=== PATIENT | male | born 1940 | race African-American/Black ===

== ENCOUNTER 2018-05-30 10:05 | Emergency (ER) | payer MEDICARE ==
[2018-05-30 10:56] LABS: ADD MAN DIFF? NO
[2018-05-30 10:58] LABS: BASO % 0 % (0-3); EOS # 0.1 x10^3/uL (0.0-0.7); EOS % 2 % (0-3); HEMATOCRIT 43.1 % (39.0-53.0); HEMOGLOBIN 14.6 g/dL (13.0-17.5); LYMPH % 28 % (24-48); MEAN CORPUSCULAR HEMOGLOBIN 29 pg (25-35); MEAN CORPUSCULAR HGB CONC 34 g/dL (31-37); MEAN CORPUSCULAR VOLUME 85 fL (79-100); MONO # 0.6 x10^3/uL (0.0-1.1); MONO % 8 % (0-9); NEUT # 4.3 x10^3uL (1.8-7.7); NEUT % 62 % (31-73); PLATELET COUNT 248 x10^3/uL (140-400); RED BLOOD COUNT 5.11 x10^6/uL (4.30-5.70); RED CELL DISTRIBUTION WIDTH 14.2 % (11.5-14.5)
[2018-05-30 11:09] LABS: ANION GAP 1 (6-14); BLOOD UREA NITROGEN 23 mg/dL (8-26); BUN/CREATININE RATIO 18 (6-20); CALCIUM 8.8 mg/dL (8.5-10.1); CARBON DIOXIDE 33 mmol/L (21-32); CHLORIDE 102 mmol/L (98-107); CREATININE 1.3 mg/dL (0.7-1.3); GFR 64.8; GLUCOSE 145 mg/dL (70-99); POTASSIUM 4.2 mmol/L (3.5-5.1); SODIUM 136 mmol/L (136-145)
[2018-05-30 11:16] LABS: ALBUMIN 3.5 g/dL (3.4-5.0); ALK PHOS 60 U/L (46-116); ALT (SGPT) 22 U/L (16-63); AST (SGOT) 18 U/L (15-37); TOTAL BILIRUBIN 0.4 mg/dL (0.2-1.0); TOTAL PROTEIN 7.1 g/dL (6.4-8.2)
[2018-05-30 15:47] LABS: BILIRUBIN,URINE NEGATIVE (NEG); CLARITY,URINE CLEAR; COLOR,URINE YELLOW; GLUCOSE,URINE NEGATIVE (NEG); NITRITE,URINE NEGATIVE (NEG); PROTEIN,URINE NEGATIVE (NEG-TRACE)
[2018-05-30 15:53] LABS: BACTERIA,URINE 0 /HPF (0-FEW); RBC,URINE 0 /HPF (0-2); SQUAMOUS EPITHELIAL CELL,UR FEW /LPF; WBC,URINE OCC /HPF (0-4)
[2018-05-30 15:54] LABS: HYALINE CASTS, URINE FEW /HPF
== END 2018-05-30 16:45 | disposition home or self-care (01) ==
LOC: ER 16:45
DX: M54.5 Low back pain (principal); M62.3 Immobility syndrome (paraplegic); E78.00 Pure hypercholesterolemia, unspecified; E11.9 Type 2 diabetes mellitus without complications; I10 Essential (primary) hypertension; I25.10 Atherosclerotic heart disease of native coronary artery without angina pectoris
CPT/HCPCS: 36415; 72146; 72148; 80053; 81001; 85025; 99285-25

== ENCOUNTER 2018-06-13 13:35 | Emergency (ER) | payer MEDICARE ==
[2018-06-13 14:46] LABS: CLARITY,URINE TURBID; COLOR,URINE RED; GLUCOSE,URINE NEGATIVE (NEG); PROTEIN,URINE 100 mg/dL (NEG-TRACE)
[2018-06-13 15:07] LABS: RBC,URINE TNTC /HPF (0-2)
[2018-06-13 15:08] LABS: BACTERIA,URINE 0 /HPF (0-FEW); WBC,URINE OCC /HPF (0-4)
== END 2018-06-13 15:57 | disposition home or self-care (01) ==
LOC: ER 13:35
DX: R31.0 Gross hematuria (principal); R30.0 Dysuria; E78.00 Pure hypercholesterolemia, unspecified; I10 Essential (primary) hypertension; I25.10 Atherosclerotic heart disease of native coronary artery without angina pectoris
CPT/HCPCS: 81001; 99285-25; P9612

== ENCOUNTER → 2018-06-17 | Outpatient (CLI) | payer MEDICARE | END | disposition home or self-care (01) | LOC: MRI 09:20 | DX: R90.82 White matter disease, unspecified (principal); M17.0 Bilateral primary osteoarthritis of knee; E78.5 Hyperlipidemia, unspecified; E78.00 Pure hypercholesterolemia, unspecified; J44.9 Chronic obstructive pulmonary disease, unspecified; I13.0 Hypertensive heart and chronic kidney disease with heart failure and stage 1 through stage 4 chronic kidney disease, or unspecified chronic kidney disease; E11.22 Type 2 diabetes mellitus with diabetic chronic kidney disease; I50.9 Heart failure, unspecified; N18.3 Chronic kidney disease, stage 3 (moderate); K21.9 Gastro-esophageal reflux disease without esophagitis; E66.9 Obesity, unspecified | CPT/HCPCS: 70551 ==

== ENCOUNTER 2019-02-11 15:50 | Inpatient (IN) | payer MEDICARE ==
[~2019-02-11] VITALS: Ht 182.9 cm; Wt 111.4 kg
[~2019-02-11 15:50] MED LIST: ALLO100T PO; AMOX1TAB11 PO; ASPI325T8 PO; ATOR10TA60 PO; CHOL10002 PO; CIPR250T30 PO; CLOP75TA57 PO; FURO-68 PO; GABA300C18 PO; GLIM1TAB2 PO; GLIM2TAB PO; GLIM2TAB2 PO; IPRA3AMP29 NEB; LACT1CAP24 PO; MECL25TA3 PO; MELO15TA23 PO; METF10007 PO; METO-239 PO; MULT-18 PO; OMEG-57 PO; POTA20TA12 PO; TAMS0.4C2 PO
--- NOTE | 2019-02-11 17:00 | NUR ---
Patient direct admit from Dr. Mendez's office at 1700, arrived with . Has complaints of new onset back pain rating pain 10/10. This RN called Dr. Mendez who in return placed all orders, home medications restarted. IV started. Pain medication given. Patient resting comfortable in bed.
[2019-02-11] MEDS ORDERED: oxyCODONE/APAP 5/325 1 TAB TABLET PO PRN ×2 (17:30)
[2019-02-11] MEDS ORDERED: predniSONE 20 MG TABLET PO ONE (17:45)
[2019-02-11] MEDS ORDERED: METHOCARBAMOL 500 MG TABLET PO PRN (17:45)
--- NOTE | 2019-02-11 17:55 | HP ---
ADMIT DATE: 02/11/2019 CHIEF COMPLAINT: Low back pain, leg weakness. HISTORY OF PRESENT ILLNESS AND HOSPITAL COURSE: This patient states that he has become increasingly weak and has intractable back pain every time he tries to stand. He is here with and is brought in by wheelchair. He is no longer able to take care of himself and his can no longer manage lifting him at home. Due to these findings, he was admitted directly to the hospital for intractable back pain. PT and OT modalities with possible rehab or fci care. PAST MEDICAL HISTORY: Significant for, 1. Type 2 diabetes. 2. Hypertension. 3. Coronary artery disease. 4. Hyperlipidemia. 5. COPD. 6. Obstructive sleep apnea. 7. Diabetic neuropathy. 8. Degenerative disk disease. 9. Spinal stenosis. 10. Multinodular goiter. 11. Gouty arthritis. 12. Obesity. MEDICATIONS: On admission are metoprolol 25 mg half a tablet daily, metformin 1000 mg daily, Plavix 75 mg daily, aspirin 325 mg daily, allopurinol 100 mg daily, meclizine 25 mg t.i.d. p.r.n., multivitamin daily, Lasix 40 mg daily, Lipitor 20 mg daily, potassium 20 mEq daily, vitamin D 1000 international units daily. FAMILY HISTORY: Significant for father with prostate cancer and mother who with heart disease. PAST SURGICAL HISTORY: Significant for lap band surgery and stent to LAD. SOCIAL HISTORY: He is a former smoker, quit greater than 10 years ago. He does not use alcohol. He lives with his . REVIEW OF SYSTEMS: The patient denies any bowel or bladder dysfunction. He denies any cough, congestion, fever, weight gain or weight loss. The patient has intractable low back pain, worse with activity and leg weakness. PHYSICAL EXAMINATION: GENERAL: This is a well-nourished, well-developed, moderately obese -[place] male in no apparent distress. On my exam, he is alert and oriented x 3. HEENT: Benign. NECK: Supple. CARDIAC: Regular rate and rhythm. LUNGS: Clear. ABDOMEN: Soft, nontender. EXTREMITIES: 2+ pulses without significant edema. NEUROLOGIC: Showed poor ability to stand from chair. The patient is unable to stand for more than 10 seconds when he has to sit back down due to intractable pain. ASSESSMENT: 1. Intractable back pain. 2. Leg weakness. 3. Spinal stenosis. 4. See past medical history. PLAN: To proceed with MRI of the back. Consult Dr. Young for physical rehabilitation medicine, proceed with PT and OT modalities and consider neurosurgical consultation pending MRI results monitoring, treat chronic medical issues. JANET MIRANDA MD DR: FREDDY/stephen JOB#: [id number] / [id number]
[2019-02-11] MEDS: ENOXAPARIN 40 MG/0.4 ML SYRINGE. SQ SCH (18:00)
[2019-02-11 19:00] VITALS: BP 141/82
[2019-02-11 19:06] LABS: BASO # 0.1 x10^3/uL (0.0-0.2); BASO % 1 % (0-3); EOS # 0.2 x10^3/uL (0.0-0.7); EOS % 2 % (0-3); HEMATOCRIT 39.1 % (39.0-53.0); HEMOGLOBIN 13.2 g/dL (13.0-17.5); LYMPH % 30 % (24-48); MEAN CORPUSCULAR HEMOGLOBIN 28 pg (25-35); MEAN CORPUSCULAR HGB CONC 34 g/dL (31-37); MEAN CORPUSCULAR VOLUME 84 fL (79-100); MONO # 0.6 x10^3/uL (0.0-1.1); MONO % 10 % (0-9); NEUT # 3.7 x10^3uL (1.8-7.7); NEUT % 57 % (31-73); PLATELET COUNT 218 x10^3/uL (140-400); RED BLOOD COUNT 4.65 x10^6/uL (4.30-5.70); RED CELL DISTRIBUTION WIDTH 14.1 % (11.5-14.5); WHITE BLOOD COUNT 6.5 x10^3/uL (4.0-11.0)
[2019-02-11 19:17] LABS: ALBUMIN/GLOBULIN RATIO 0.8 (1.0-1.7); CALCIUM 9.2 mg/dL (8.5-10.1); CREATININE 1.1 mg/dL (0.7-1.3); GFR 78.3; POTASSIUM 3.3 mmol/L (3.5-5.1); TOTAL BILIRUBIN 0.4 mg/dL (0.2-1.0); TOTAL PROTEIN 6.7 g/dL (6.4-8.2)
[2019-02-11] MEDS: ATORVASTATIN CALCIUM 10 MG TABLET. PO SCH (20:30)
[2019-02-11] MEDS: INSULIN LISPRO 300 UNITS/3 ML INSULN.PEN. SQ SCH (20:31)
[2019-02-11 22:47] VITALS: BP 138/84
[2019-02-12 03:00] VITALS: BP 167/71
[2019-02-12 04:24] LABS: BASO % 0 % (0-3); EOS % 0 % (0-3); HEMATOCRIT 40.1 % (39.0-53.0); HEMOGLOBIN 13.4 g/dL (13.0-17.5); LYMPH # 1.2 x10^3/uL (1.0-4.8); LYMPH % 21 % (24-48); MEAN CORPUSCULAR HEMOGLOBIN 28 pg (25-35); MEAN CORPUSCULAR HGB CONC 34 g/dL (31-37); MEAN CORPUSCULAR VOLUME 84 fL (79-100); MONO # 0.1 x10^3/uL (0.0-1.1); MONO % 1 % (0-9); NEUT # 4.4 x10^3uL (1.8-7.7); NEUT % 78 % (31-73); PLATELET COUNT 238 x10^3/uL (140-400); RED BLOOD COUNT 4.79 x10^6/uL (4.30-5.70); RED CELL DISTRIBUTION WIDTH 13.8 % (11.5-14.5); WHITE BLOOD COUNT 5.7 x10^3/uL (4.0-11.0)
[2019-02-12 04:49] LABS: CALCIUM 9.1 mg/dL (8.5-10.1); CREATININE 1.1 mg/dL (0.7-1.3); GFR 78.3; POTASSIUM 3.4 mmol/L (3.5-5.1)
[2019-02-12 07:00] VITALS: BP 158/80
[2019-02-12] MEDS: MULTIVITAMIN with MINERAL TABLET. PO SCH (08:53)
[2019-02-12] MEDS: ALLOPURINOL 100 MG TABLET. PO SCH (08:53)
[2019-02-12] MEDS: metFORMIN 500 MG TABLET PO SCH (08:53)
[2019-02-12] MEDS: POTASSIUM CHLORIDE 20 MEQ TABLET.ER. PO SCH (08:53)
[2019-02-12] MEDS: FUROSEMIDE 40 MG TABLET. PO SCH (08:53)
[2019-02-12] MEDS: METOPROLOL SUCC 24HR ER 25 MG TAB.ER.24H. PO SCH (08:54)
[2019-02-12] MEDS: INSULIN LISPRO 300 UNITS/3 ML INSULN.PEN. SQ SCH ×4 (08:58→21:00)
[2019-02-12] MEDS ORDERED: CLOPIDOGREL BISULFATE 75 MG TABLET PO SCH (09:00)
[2019-02-12] MEDS ORDERED: BUPIVACAINE MPF 0.25% 10 ML VIAL. IJ ONE (10:00)
[2019-02-12] MEDS ORDERED: methylPREDNISolone ACETATE 40 MG/ML VIAL. INJ ONE (10:00)
[2019-02-12 11:00] VITALS: BP 152/77
--- NOTE | 2019-02-12 11:52 | PDOC ---
PROGRESS NOTES Subjective Subjective Patient feeling better but still with significant mobility deficit and low back pain. Plan on PT OT eval and SNU eval and transfer when insurance allows. Objective Objective Vital Signs Date Time Temp Pulse Resp B/P (MAP) Pulse Ox O2 Delivery O2 Flow Rate FiO2 02/12/19 11:00 98.1 82 17 152/77 (102) 97 Room Air 98.1 Intake and Output 02/12/19 07:00 Intake Total 300 ml Output Total 750 ml Balance -450 ml Intake Oral 300 ml Output Urine Total 750 ml Physical Exam Abdomen: Normal bowel sounds Heart: Regular rate Extremities: No edema General: Alert Lungs: Clear to auscultation MUSCULOSKELETAL: Other (low back pain and leg weakness) Assessment Assessment ASSESSMENT: 1. Intractable back pain. 2. Leg weakness. 3. Spinal stenosis. PAST MEDICAL HISTORY: Significant for, 1. Type 2 diabetes. 2. Hypertension. 3. Coronary artery disease. 4. Hyperlipidemia. 5. COPD. 6. Obstructive sleep apnea. 7. Diabetic neuropathy. 8. Degenerative disk disease. 9. Spinal stenosis. 10. Multinodular goiter. 11. Gouty arthritis. 12. Obesity. Plan Plan of Care Proceed with PT OT eval and treat. SNU transfer when insurance allows. Consult pain clinic Comment Review of Relevant I have reviewed the following items paige (where applicable) has been applied. Labs Laboratory Tests Test 02/11/19 17:40 02/11/19 18:30 02/11/19 20:31 02/12/19 03:05 Glucose (Fingerstick) 221 mg/dL (70-99) 142 mg/dL (70-99) White Blood Count 6.5 x10^3/uL (4.0-11.0) 5.7 x10^3/uL (4.0-11.0) Red Blood Count 4.65 x10^6/uL (4.30-5.70) 4.79 x10^6/uL (4.30-5.70) Hemoglobin 13.2 g/dL (13.0-17.5) 13.4 g/dL (13.0-17.5) Hematocrit 39.1 % (39.0-53.0) 40.1 % (39.0-53.0) Mean Corpuscular Volume 84 fL (79-100) 84 fL (79-100) Mean Corpuscular Hemoglobin 28 pg (25-35) 28 pg (25-35) Mean Corpuscular Hemoglobin Concent 34 g/dL (31-37) 34 g/dL (31-37) Red Cell Distribution Width 14.1 % (11.5-14.5) 13.8 % (11.5-14.5) Platelet Count 218 x10^3/uL (140-400) 238 x10^3/uL (140-400) Neutrophils (%) (Auto) 57 % (31-73) 78 % (31-73) Lymphocytes (%) (Auto) 30 % (24-48) 21 % (24-48) Monocytes (%) (Auto) 10 % (0-9) 1 % (0-9) Eosinophils (%) (Auto) 2 % (0-3) 0 % (0-3) Basophils (%) (Auto) 1 % (0-3) 0 % (0-3) Neutrophils # (Auto) 3.7 x10^3uL (1.8-7.7) 4.4 x10^3uL (1.8-7.7) Lymphocytes # (Auto) 2.0 x10^3/uL (1.0-4.8) 1.2 x10^3/uL (1.0-4.8) Monocytes # (Auto) 0.6 x10^3/uL (0.0-1.1) 0.1 x10^3/uL (0.0-1.1) Eosinophils # (Auto) 0.2 x10^3/uL (0.0-0.7) 0.0 x10^3/uL (0.0-0.7) Basophils # (Auto) 0.1 x10^3/uL (0.0-0.2) 0.0 x10^3/uL (0.0-0.2) Sodium Level 144 mmol/L (136-145) 143 mmol/L (136-145) Potassium Level 3.3 mmol/L (3.5-5.1) 3.4 mmol/L (3.5-5.1) Chloride Level 104 mmol/L (98-107) 102 mmol/L (98-107) Carbon Dioxide Level 33 mmol/L (21-32) 31 mmol/L (21-32) Anion Gap 7 (6-14) 10 (6-14) Blood Urea Nitrogen 14 mg/dL (8-26) 12 mg/dL (8-26) Creatinine 1.1 mg/dL (0.7-1.3) 1.1 mg/dL (0.7-1.3) Estimated GFR (Cockcroft-Gault) 78.3 78.3 BUN/Creatinine Ratio 13 (6-20) Glucose Level 209 mg/dL (70-99) 188 mg/dL (70-99) Calcium Level 9.2 mg/dL (8.5-10.1) 9.1 mg/dL (8.5-10.1) Total Bilirubin 0.4 mg/dL (0.2-1.0) Aspartate Amino Transf (AST/SGOT) 16 U/L (15-37) Alanine Aminotransferase (ALT/SGPT) 14 U/L (16-63) Alkaline Phosphatase 55 U/L (46-116) Total Protein 6.7 g/dL (6.4-8.2) Albumin 3.0 g/dL (3.4-5.0) Albumin/Globulin Ratio 0.8 (1.0-1.7) Test 02/12/19 07:50 02/12/19 10:28 Glucose (Fingerstick) 152 mg/dL (70-99) 186 mg/dL (70-99) Laboratory Tests Test 02/11/19 17:40 02/11/19 18:30 02/11/19 20:31 02/12/19 03:05 Glucose (Fingerstick) 221 mg/dL (70-99) 142 mg/dL (70-99) White Blood Count 6.5 x10^3/uL (4.0-11.0) 5.7 x10^3/uL (4.0-11.0) Red Blood Count 4.65 x10^6/uL (4.30-5.70) 4.79 x10^6/uL (4.30-5.70) Hemoglobin 13.2 g/dL (13.0-17.5) 13.4 g/dL (13.0-17.5) Hematocrit 39.1 % (39.0-53.0) 40.1 % (39.0-53.0) Mean Corpuscular Volume 84 fL (79-100) 84 fL (79-100) Mean Corpuscular Hemoglobin 28 pg (25-35) 28 pg (25-35) Mean Corpuscular Hemoglobin Concent 34 g/dL (31-37) 34 g/dL (31-37) Red Cell Distribution Width 14.1 % (11.5-14.5) 13.8 % (11.5-14.5) Platelet Count 218 x10^3/uL (140-400) 238 x10^3/uL (140-400) Neutrophils (%) (Auto) 57 % (31-73) 78 % (31-73) Lymphocytes (%) (Auto) 30 % (24-48) 21 % (24-48) Monocytes (%) (Auto) 10 % (0-9) 1 % (0-9) Eosinophils (%) (Auto) 2 % (0-3) 0 % (0-3) Basophils (%) (Auto) 1 % (0-3) 0 % (0-3) Neutrophils # (Auto) 3.7 x10^3uL (1.8-7.7) 4.4 x10^3uL (1.8-7.7) Lymphocytes # (Auto) 2.0 x10^3/uL (1.0-4.8) 1.2 x10^3/uL (1.0-4.8) Monocytes # (Auto) 0.6 x10^3/uL (0.0-1.1) 0.1 x10^3/uL (0.0-1.1) Eosinophils # (Auto) 0.2 x10^3/uL (0.0-0.7) 0.0 x10^3/uL (0.0-0.7) Basophils # (Auto) 0.1 x10^3/uL (0.0-0.2) 0.0 x10^3/uL (0.0-0.2) Sodium Level 144 mmol/L (136-145) 143 mmol/L (136-145) Potassium Level 3.3 mmol/L (3.5-5.1) 3.4 mmol/L (3.5-5.1) Chloride Level 104 mmol/L (98-107) 102 mmol/L (98-107) Carbon Dioxide Level 33 mmol/L (21-32) 31 mmol/L (21-32) Anion Gap 7 (6-14) 10 (6-14) Blood Urea Nitrogen 14 mg/dL (8-26) 12 mg/dL (8-26) Creatinine 1.1 mg/dL (0.7-1.3) 1.1 mg/dL (0.7-1.3) Estimated GFR (Cockcroft-Gault) 78.3 78.3 BUN/Creatinine Ratio 13 (6-20) Glucose Level 209 mg/dL (70-99) 188 mg/dL (70-99) Calcium Level 9.2 mg/dL (8.5-10.1) 9.1 mg/dL (8.5-10.1) Total Bilirubin 0.4 mg/dL (0.2-1.0) Aspartate Amino Transf (AST/SGOT) 16 U/L (15-37) Alanine Aminotransferase (ALT/SGPT) 14 U/L (16-63) Alkaline Phosphatase 55 U/L (46-116) Total Protein 6.7 g/dL (6.4-8.2) Albumin 3.0 g/dL (3.4-5.0) Albumin/Globulin Ratio 0.8 (1.0-1.7) Test 02/12/19 07:50 02/12/19 10:28 Glucose (Fingerstick) 152 mg/dL (70-99) 186 mg/dL (70-99) Medications Current Medications Allopurinol (Zyloprim) 100 mg DAILY PO Last administered on 02/12/19at 08:53; Start 02/12/19 at 09:00 Atorvastatin Calcium (Lipitor) 20 mg HS PO Last administered on 02/11/19at 20:30 ; Start 02/11/19 at 21:00 Clopidogrel Bisulfate (Plavix) 75 mg DAILY PO Last administered on 02/12/19at 08 :52; Start 02/12/19 at 09:00 Furosemide (Lasix) 40 mg DAILY PO Last administered on 02/12/19at 08:53; Start 02/12/19 at 09:00 Metoprolol Succinate (Toprol Xl) 25 mg DAILY PO Last administered on 02/12/19at 08:54; Start 02/12/19 at 09:00 Potassium Chloride (Klor-Con) 20 meq DAILY PO Last administered on 02/12/19 08 :53; Start 02/12/19 at 09:00 Metformin HCl (Glucophage) 1,000 mg [id number] PO Last administered on 08:53; Start 02/12/19 at 08:00 Multivitamins (Thera M Plus) 1 tab DAILY PO Last administered on 02/12/19at 08: 53; Start 02/12/19 at 09:00 Oxycodone/ Acetaminophen (Percocet 5/325) 1 tab PRN Q4HRS PRN PO MILD PAIN, 1ST CHOICE; Start 02/11/19 at 17:30 Oxycodone/ Acetaminophen (Percocet 5/325) 2 tab PRN Q4HRS PRN PO MODERATE PAIN , SEVERE PAIN; Start 02/11/19 at 17:30 Enoxaparin Sodium (Lovenox 40mg Syringe) 40 mg Q24H SQ ; Start 02/11/19 at 18:00 Insulin Human Lispro (HumaLOG) 0-12 UNITS QIDACHS SQ Last administered on at 11:38; Start 02/11/19 at 21:00 Prednisone (Prednisone) 60 mg 1X ONCE PO Last administered on 02/11/19at 18:15 ; Start 02/11/19 at 17:45; Stop 02/11/19 at 17:47; Status DC Methocarbamol (Robaxin) 500 mg PRN TID PRN PO MUSCLE PAIN Last administered on 02/11/19 18:15; Start 02/11/19 at 17:45 Methylprednisolone Acetate (DEPO-Medrol 40MG VIAL) 40 mg 1X ONCE INJ Last administered on 02/12/19 10:00; Start 02/12/19 at 10:00; Stop 02/12/19 at 10:01 ; Status DC Bupivacaine HCl (Sensorcaine-Mpf 0.25%) 10 ml 1X ONCE IJ Last administered on 02/12/19at 10:00; Start 02/12/19 at 10:00; Stop 02/12/19 at 10:01; Status DC Active Scripts Active Reported Atorvastatin Calcium 10 Mg Tablet 20 Mg PO HS Metformin Hcl 1,000 Mg Tablet 1,000 Mg PO DAILY Meloxicam 15 Mg Tablet 15 Mg PO DAILY Allopurinol 100 Mg Tablet 100 Mg PO DAILY Acidophilus Lactobacillus (Lactobacillus Acidophilus) 1 Each Capsule 1 Each PO Fish Oil + D3 Softgel ([place]-3S/Dha/Epa/Fish Oil/D3) 1 Each Capsule 1 Each PO DAILY Daily Vitamin (Multivitamin) 1 Each Tablet 1 Each PO DAILY Vitamin D (Cholecalciferol (Vitamin D3)) 1,000 Unit Tablet 1,000 Unit PO DAILY Metoprolol Succinate ( Xl ) (Metoprolol Succinate) 25 Mg Tab.er.24h 25 Mg PO DAILY Plavix (Clopidogrel Bisulfate) 75 Mg Tablet 75 Mg PO DAILY Lasix (Furosemide) 40 Mg Tablet 40 Mg PO DAILY Potassium Chloride 20 Meq Tab.er.prt 20 Meq PO DAILY Aspirin 325 Mg Tablet 325 Mg PO DAILY Meclizine Hcl 25 Mg Tablet 25 Mg PO DAILY Vitals/I & O Vital Sign - Last 24 Hours 02/11/19 02/11/19 02/11/19 02/11/19 18:45 19:00 20:00 22:47 Temp 98.1 98.6 98.1 98.6 Pulse 65 74 Resp 18 18 B/P (MAP) 141/82 (101) 138/84 (102) Pulse Ox 96 96 O2 Delivery Room Air Room Air Room Air Room Air 02/12/19 02/12/19 02/12/19 02/12/19 03:00 07:00 08:00 08:54 Temp 98.4 97.9 98.4 97.9 Pulse 68 64 64 Resp 18 18 B/P (MAP) 167/71 (103) 158/80 (106) 158/80 Pulse Ox 93 98 O2 Delivery Room Air Room Air Room Air 02/12/19 11:00 Temp 98.1 98.1 Pulse 82 Resp 17 B/P (MAP) 152/77 (102) Pulse Ox 97 O2 Delivery Room Air Intake and Output 02/11/19 02/11/19 02/12/19 15:00 23:00 07:00 Intake Total 300 ml Output Total 750 ml Balance 300 ml -750 ml JANET MIRANDA MD Feb 12, 2019 11:52
[2019-02-12] MEDS ORDERED: GADOBUTROL 10 MMOL/10 ML VIAL IV ONE (13:45)
[2019-02-12] MEDS ORDERED: POTASSIUM CHLORIDE 20 MEQ TABLET.ER. PO ONE (14:45)
[2019-02-12 15:00] VITALS: BP 140/77
--- NOTE | 2019-02-12 15:19 | NUR ---
SW following for discharge planning. Discussed with RN, pt is from home with . Pt had an MRI today, waiting on report. SW awaiting PT/OT recommendations for discharge planning. SW will continue to follow.
--- NOTE | 2019-02-12 15:56 | PDOC ---
SUBJECTIVE Subjective low back pain OBJECTIVE Objective 78 yo male C/O low back pain worse with standing from sitting and with walking Vital Signs Vital Signs Date Time Temp Pulse Resp B/P (MAP) Pulse Ox O2 Delivery O2 Flow Rate FiO2 02/12/19 15:00 98.1 76 15 140/77 (98) 93 Room Air 98.1 02/12/19 11:00 98.1 82 17 152/77 (102) 97 Room Air 98.1 02/12/19 08:54 64 158/80 02/12/19 08:00 Room Air 02/12/19 07:00 97.9 64 18 158/80 (106) 98 Room Air 97.9 02/12/19 03:00 98.4 68 18 167/71 (103) 93 Room Air 98.4 02/11/19 22:47 98.6 74 18 138/84 (102) 96 Room Air 98.6 02/11/19 20:00 Room Air 02/11/19 19:00 98.1 65 18 141/82 (101) 96 Room Air 98.1 02/11/19 18:45 Room Air I & O Intake and Output 02/12/19 06:59 Intake Total 300 ml Output Total 750 ml Balance -450 ml Intake Oral 300 ml Output Urine Total 750 ml ASSESSMENT/PLAN Assessment/Plan MRI: DDD lumbar spine Agree with oxycodone 5mg 1-2 po q 4hrs Pt may benefit from LESI if deemed appropriate and safe to hold clopidigrel COMMENT Lab Laboratory Tests Test 02/11/19 17:40 02/11/19 18:30 02/11/19 20:31 02/12/19 03:05 Glucose (Fingerstick) 221 mg/dL (70-99) 142 mg/dL (70-99) White Blood Count 6.5 x10^3/uL (4.0-11.0) 5.7 x10^3/uL (4.0-11.0) Red Blood Count 4.65 x10^6/uL (4.30-5.70) 4.79 x10^6/uL (4.30-5.70) Hemoglobin 13.2 g/dL (13.0-17.5) 13.4 g/dL (13.0-17.5) Hematocrit 39.1 % (39.0-53.0) 40.1 % (39.0-53.0) Mean Corpuscular Volume 84 fL (79-100) 84 fL (79-100) Mean Corpuscular Hemoglobin 28 pg (25-35) 28 pg (25-35) Mean Corpuscular Hemoglobin Concent 34 g/dL (31-37) 34 g/dL (31-37) Red Cell Distribution Width 14.1 % (11.5-14.5) 13.8 % (11.5-14.5) Platelet Count 218 x10^3/uL (140-400) 238 x10^3/uL (140-400) Neutrophils (%) (Auto) 57 % (31-73) 78 % (31-73) Lymphocytes (%) (Auto) 30 % (24-48) 21 % (24-48) Monocytes (%) (Auto) 10 % (0-9) 1 % (0-9) Eosinophils (%) (Auto) 2 % (0-3) 0 % (0-3) Basophils (%) (Auto) 1 % (0-3) 0 % (0-3) Neutrophils # (Auto) 3.7 x10^3uL (1.8-7.7) 4.4 x10^3uL (1.8-7.7) Lymphocytes # (Auto) 2.0 x10^3/uL (1.0-4.8) 1.2 x10^3/uL (1.0-4.8) Monocytes # (Auto) 0.6 x10^3/uL (0.0-1.1) 0.1 x10^3/uL (0.0-1.1) Eosinophils # (Auto) 0.2 x10^3/uL (0.0-0.7) 0.0 x10^3/uL (0.0-0.7) Basophils # (Auto) 0.1 x10^3/uL (0.0-0.2) 0.0 x10^3/uL (0.0-0.2) Sodium Level 144 mmol/L (136-145) 143 mmol/L (136-145) Potassium Level 3.3 mmol/L (3.5-5.1) 3.4 mmol/L (3.5-5.1) Chloride Level 104 mmol/L (98-107) 102 mmol/L (98-107) Carbon Dioxide Level 33 mmol/L (21-32) 31 mmol/L (21-32) Anion Gap 7 (6-14) 10 (6-14) Blood Urea Nitrogen 14 mg/dL (8-26) 12 mg/dL (8-26) Creatinine 1.1 mg/dL (0.7-1.3) 1.1 mg/dL (0.7-1.3) Estimated GFR (Cockcroft-Gault) 78.3 78.3 BUN/Creatinine Ratio 13 (6-20) Glucose Level 209 mg/dL (70-99) 188 mg/dL (70-99) Calcium Level 9.2 mg/dL (8.5-10.1) 9.1 mg/dL (8.5-10.1) Total Bilirubin 0.4 mg/dL (0.2-1.0) Aspartate Amino Transf (AST/SGOT) 16 U/L (15-37) Alanine Aminotransferase (ALT/SGPT) 14 U/L (16-63) Alkaline Phosphatase 55 U/L (46-116) Total Protein 6.7 g/dL (6.4-8.2) Albumin 3.0 g/dL (3.4-5.0) Albumin/Globulin Ratio 0.8 (1.0-1.7) Test 02/12/19 07:50 02/12/19 10:28 Glucose (Fingerstick) 152 mg/dL (70-99) 186 mg/dL (70-99) SHARON BRODY MD Feb 12, 2019 15:56
--- NOTE | 2019-02-12 16:37 | RAD ---
MRI of the lumbar spine without and with contrast 02/12/2019 CLINICAL HISTORY: Low back pain with bilateral leg weakness. TECHNIQUE: Unenhanced T1-weighted and T2-weighted sagittal and axial and inversion recovery sagittal images of the lumbar spine were obtained. After the intravenous administration of 10 cc of Gadavist, enhanced T1-weighted sagittal and axial images the lumbar spine were obtained. FINDINGS: Comparison study is dated 05/30/2018. Very mild S-shaped curvature of the thoracolumbar spine is seen. Degenerative signal changes are seen involving all of the disks of the lumbar spine. Degenerative signal changes are seen within the marrow surrounding these discs. The conus medullaris is normal morphology, position, and signal characteristics. No area of abnormal contrast enhancement is seen. At the L1-2 and L2-3 disc spaces there are minimal generalized disc bulges. Degenerative changes are seen involving the facet joints bilaterally. These findings do not result in significant central spinal canal or neural foraminal stenosis. At the L3-4 disc space there is a mild generalized disc bulge. Superimposed on this disc bulge is a left paracentral focal disc protrusion. This measures 3 mm in AP diameter. Degenerative changes are seen involving the facet joints bilaterally. There is mild ligamentum flavum hypertrophy bilaterally. These findings when combined result in mild left-sided central spinal canal stenosis. Mild bilateral neural foraminal stenosis is seen. At the L4-5 disc space there is a mild to moderate generalized disc bulge. Degenerative changes are seen involving the facet joints bilaterally. There is mild ligamentum flavum hypertrophy bilaterally. There are small facet joint effusions. These findings when combined do not result in significant central spinal canal stenosis. Mild bilateral neural foraminal stenosis is seen. At the L5-S1 disc space there is a mild generalized disc bulge. Degenerative changes are seen involving the facet joints bilaterally. There is mild ligamentum flavum hypertrophy bilaterally. These findings when combined do not result in significant central spinal canal or neural foraminal stenosis. IMPRESSION: The changes of degenerative disc disease are seen throughout the lumbar spine. These findings result in mild left-sided central spinal canal stenosis at L3-4. Mild bilateral neural foraminal stenosis is seen at L3-4 and L4-5. Electronically signed by: Yayo Tavera MD (02/12/2019 4:34 PM) [id number]
[2019-02-12] MEDS: ENOXAPARIN 40 MG/0.4 ML SYRINGE. SQ SCH (17:16)
[2019-02-12 19:00] VITALS: BP 165/86
[2019-02-12] MEDS ORDERED: predniSONE 20 MG TABLET PO ONE (20:15)
--- NOTE | 2019-02-12 20:21 | CONS ---
DATE OF CONSULTATION: ATTENDING PHYSICIAN: Dr. Mendez The patient was seen at the request of Dr. Mendez for rehab evaluation. HISTORY OF PRESENT ILLNESS: This is a 78-year-old right-handed male, retired patient with chronic lower back pain from degenerative disk disease of lumbar vertebrae. The patient was admitted on 02/11/2019 with lower back pain, increasing and intractable every time he tried to stand. His brought him in a wheelchair and she feels he no longer is able to take care of himself and cannot able to manage him in helping lifting him at home. He was admitted for further evaluation and treatment. The patient with known diabetes mellitus, hypertension, coronary artery disease, hyperlipidemia, chronic obstructive pulmonary disease, obstructive sleep apnea, diabetic neuropathy, spinal stenosis, multinodular goiter, gouty arthritis, obesity. He admits when he tried to work out climbing steps the back pain eases up. The patient had MRI scan of the thoracic and lumbar spine done in 05/2018, which revealed multilevel degenerative disk disease and degenerative joint disease of thoracic and lumbar vertebrae without any significant central canal stenosis, mild bilateral neural foraminal stenosis was seen at L4-L5. The patient lives with his , had stairs to manage in a split level home. PHYSICAL EXAMINATION: Today revealed an elderly female. He is alert, oriented to time, place, person and circumstance and follows commands appropriately, moves all 4 extremities voluntarily where he had 4+/5 grade muscle strength and deep tendon reflexes are decreased to absent overall. He had equal perception of touch and pinprick sensation bilaterally. He had painful limited movements of his lumbar spine without any paraspinal muscle spasm and straight leg raising test is negative bilaterally. He had localized tenderness to palpation over the sacroiliac joint area bilaterally. He had pain free range of motion on both hip and knee joints. Mild crepitus on range of motion of knee joints. He is independent with bed mobility and transfers. Once up, he walked using a roller walker. I have adjusted the height of his walker, which is about 2 inches too long for him. He is not using proper body mechanics during mobility. His skin is intact at this time. 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 RECOMMENDATIONS: To proceed with injecting painful sacroiliac joint area on the right side as he complains of more discomfort on the right side to help ease his pain. I have reviewed with him a home program of physical modalities and stretching exercises and proper body mechanics. He may benefit from lumbar corset for use while up. Dr. Mendez, I appreciate asking me to participate in the care of this interesting patient. I will be glad to follow with you as needed for the rehabilitation. PONCHO SWARTZ MD DR: ELIZA/stephen JOB#: [id number] / [id number]
[2019-02-12] MEDS: ATORVASTATIN CALCIUM 10 MG TABLET. PO SCH (21:03)
[2019-02-12 23:00] VITALS: BP 165/86
[2019-02-13 03:00] VITALS: BP 160/85
[2019-02-13 07:00] VITALS: BP 157/74
[2019-02-13] MEDS: INSULIN LISPRO 300 UNITS/3 ML INSULN.PEN. SQ SCH ×2 (07:30→13:17)
[2019-02-13] MEDS: metFORMIN 500 MG TABLET PO SCH (08:35)
[2019-02-13] MEDS: FUROSEMIDE 40 MG TABLET. PO SCH (08:35)
[2019-02-13] MEDS: MULTIVITAMIN with MINERAL TABLET. PO SCH (08:35)
[2019-02-13] MEDS: POTASSIUM CHLORIDE 20 MEQ TABLET.ER. PO SCH (08:35)
[2019-02-13] MEDS: ALLOPURINOL 100 MG TABLET. PO SCH (08:36)
[2019-02-13] MEDS: METOPROLOL SUCC 24HR ER 25 MG TAB.ER.24H. PO SCH (08:36)
--- NOTE | 2019-02-13 09:06 | PDOC ---
PROGRESS NOTES Subjective Subjective He admits easing of back pain from right sacroiliac joint injection yesterday. Objective Objective Vital Signs Date Time Temp Pulse Resp B/P (MAP) Pulse Ox O2 Delivery O2 Flow Rate FiO2 02/13/19 08:36 63 157/74 02/13/19 07:00 98.1 18 98 Room Air 98.1 Intake and Output 02/13/19 07:00 Intake Total 300 ml Output Total 675 ml Balance -375 ml Intake Oral 300 ml Output Urine Total 675 ml Physical Exam Physical Exam He is awake and in no acute distress and he is incontinent of urine this AM and spilled urine on him while using urinal yesterday. He did walk for 100' with roller walker with physical therapy but he apparently had bradykinesis with his gait,almost like parkinsonism gait,in that while walking he suddenly stops and then takes small steps too fast. 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 Plan Plan of Care Agree with plans for SNF transfer. To check postvoiding urine residual and try time voiding to help with his incontinence. Comment Review of Relevant I have reviewed the following items paige (where applicable) has been applied. Labs Laboratory Tests Test 02/11/19 17:40 02/11/19 18:30 02/11/19 20:31 02/12/19 03:05 Glucose (Fingerstick) 221 mg/dL (70-99) 142 mg/dL (70-99) White Blood Count 6.5 x10^3/uL (4.0-11.0) 5.7 x10^3/uL (4.0-11.0) Red Blood Count 4.65 x10^6/uL (4.30-5.70) 4.79 x10^6/uL (4.30-5.70) Hemoglobin 13.2 g/dL (13.0-17.5) 13.4 g/dL (13.0-17.5) Hematocrit 39.1 % (39.0-53.0) 40.1 % (39.0-53.0) Mean Corpuscular Volume 84 fL (79-100) 84 fL (79-100) Mean Corpuscular Hemoglobin 28 pg (25-35) 28 pg (25-35) Mean Corpuscular Hemoglobin Concent 34 g/dL (31-37) 34 g/dL (31-37) Red Cell Distribution Width 14.1 % (11.5-14.5) 13.8 % (11.5-14.5) Platelet Count 218 x10^3/uL (140-400) 238 x10^3/uL (140-400) Neutrophils (%) (Auto) 57 % (31-73) 78 % (31-73) Lymphocytes (%) (Auto) 30 % (24-48) 21 % (24-48) Monocytes (%) (Auto) 10 % (0-9) 1 % (0-9) Eosinophils (%) (Auto) 2 % (0-3) 0 % (0-3) Basophils (%) (Auto) 1 % (0-3) 0 % (0-3) Neutrophils # (Auto) 3.7 x10^3uL (1.8-7.7) 4.4 x10^3uL (1.8-7.7) Lymphocytes # (Auto) 2.0 x10^3/uL (1.0-4.8) 1.2 x10^3/uL (1.0-4.8) Monocytes # (Auto) 0.6 x10^3/uL (0.0-1.1) 0.1 x10^3/uL (0.0-1.1) Eosinophils # (Auto) 0.2 x10^3/uL (0.0-0.7) 0.0 x10^3/uL (0.0-0.7) Basophils # (Auto) 0.1 x10^3/uL (0.0-0.2) 0.0 x10^3/uL (0.0-0.2) Sodium Level 144 mmol/L (136-145) 143 mmol/L (136-145) Potassium Level 3.3 mmol/L (3.5-5.1) 3.4 mmol/L (3.5-5.1) Chloride Level 104 mmol/L (98-107) 102 mmol/L (98-107) Carbon Dioxide Level 33 mmol/L (21-32) 31 mmol/L (21-32) Anion Gap 7 (6-14) 10 (6-14) Blood Urea Nitrogen 14 mg/dL (8-26) 12 mg/dL (8-26) Creatinine 1.1 mg/dL (0.7-1.3) 1.1 mg/dL (0.7-1.3) Estimated GFR (Cockcroft-Gault) 78.3 78.3 BUN/Creatinine Ratio 13 (6-20) Glucose Level 209 mg/dL (70-99) 188 mg/dL (70-99) Calcium Level 9.2 mg/dL (8.5-10.1) 9.1 mg/dL (8.5-10.1) Total Bilirubin 0.4 mg/dL (0.2-1.0) Aspartate Amino Transf (AST/SGOT) 16 U/L (15-37) Alanine Aminotransferase (ALT/SGPT) 14 U/L (16-63) Alkaline Phosphatase 55 U/L (46-116) Total Protein 6.7 g/dL (6.4-8.2) Albumin 3.0 g/dL (3.4-5.0) Albumin/Globulin Ratio 0.8 (1.0-1.7) Test 02/12/19 07:50 02/12/19 10:28 02/12/19 17:03 02/12/19 20:39 Glucose (Fingerstick) 152 mg/dL (70-99) 186 mg/dL (70-99) 134 mg/dL (70-99) 147 mg/dL (70-99) Test 02/13/19 07:46 Glucose (Fingerstick) 132 mg/dL (70-99) Laboratory Tests Test 02/12/19 10:28 02/12/19 17:03 02/12/19 20:39 02/13/19 07:46 Glucose (Fingerstick) 186 mg/dL (70-99) 134 mg/dL (70-99) 147 mg/dL (70-99) 132 mg/dL (70-99) Medications Current Medications Allopurinol (Zyloprim) 100 mg DAILY PO Last administered on 02/13/19at 08:36; Start 02/12/19 at 09:00 Atorvastatin Calcium (Lipitor) 20 mg HS PO Last administered on 02/12/19at 21:03 ; Start 02/11/19 at 21:00 Clopidogrel Bisulfate (Plavix) 75 mg DAILY PO Last administered on 02/12/19 08 :52; Start 02/12/19 at 09:00; Stop 02/12/19 at 17:21; Status DC Furosemide (Lasix) 40 mg DAILY PO Last administered on 02/13/19 08:35; Start 02/12/19 at 09:00 Metoprolol Succinate (Toprol Xl) 25 mg DAILY PO Last administered on 02/13/19 08:36; Start 02/12/19 at 09:00 Potassium Chloride (Klor-Con) 20 meq DAILY PO Last administered on 02/13/19 08 :35; Start 02/12/19 at 09:00 Metformin HCl (Glucophage) 1,000 mg DAILYWBKFT PO Last administered on 08:35; Start 02/12/19 at 08:00 Multivitamins (Thera M Plus) 1 tab DAILY PO Last administered on 02/13/19at 08: 35; Start 02/12/19 at 09:00 Oxycodone/ Acetaminophen (Percocet 5/325) 1 tab PRN Q4HRS PRN PO MILD PAIN, 1ST CHOICE; Start 02/11/19 at 17:30 Oxycodone/ Acetaminophen (Percocet 5/325) 2 tab PRN Q4HRS PRN PO MODERATE PAIN , SEVERE PAIN; Start 02/11/19 at 17:30 Enoxaparin Sodium (Lovenox 40mg Syringe) 40 mg Q24H SQ Last administered on at 17:16; Start 02/11/19 at 18:00 Insulin Human Lispro (HumaLOG) 0-12 UNITS QIDACHS SQ Last administered on at 11:38; Start 02/11/19 at 21:00 Prednisone (Prednisone) 60 mg 1X ONCE PO Last administered on 02/11/19 18:15 ; Start 02/11/19 at 17:45; Stop 02/11/19 at 17:47; Status DC Methocarbamol (Robaxin) 500 mg PRN TID PRN PO MUSCLE PAIN Last administered on 02/11/19 18:15; Start 02/11/19 at 17:45 Methylprednisolone Acetate (DEPO-Medrol 40MG VIAL) 40 mg 1X ONCE INJ Last administered on 02/12/19at 10:00; Start 02/12/19 at 10:00; Stop 02/12/19 at 10:01 ; Status DC Bupivacaine HCl (Sensorcaine-Mpf 0.25%) 10 ml 1X ONCE IJ Last administered on 02/12/19at 10:00; Start 02/12/19 at 10:00; Stop 02/12/19 at 10:01; Status DC Gadobutrol (Gadavist) 10 mmol 1X ONCE IV Last administered on 02/12/19at 13:52 ; Start 02/12/19 at 13:45; Stop 02/12/19 at 13:46; Status DC Potassium Chloride (Klor-Con) 20 meq 1X ONCE PO Last administered on at 15:05; Start 02/12/19 at 14:45; Stop 02/12/19 at 14:46; Status DC Prednisone (Prednisone) 60 mg 1X ONCE PO Last administered on 02/12/19at 21:03 ; Start 02/12/19 at 20:15; Stop 02/12/19 at 20:16; Status DC Active Scripts Active Reported Atorvastatin Calcium 10 Mg Tablet 20 Mg PO HS Metformin Hcl 1,000 Mg Tablet 1,000 Mg PO DAILY Meloxicam 15 Mg Tablet 15 Mg PO DAILY Allopurinol 100 Mg Tablet 100 Mg PO DAILY Acidophilus Lactobacillus (Lactobacillus Acidophilus) 1 Each Capsule 1 Each PO Fish Oil + D3 Softgel ([place]-3S/Dha/Epa/Fish Oil/D3) 1 Each Capsule 1 Each PO DAILY Daily Vitamin (Multivitamin) 1 Each Tablet 1 Each PO DAILY Vitamin D (Cholecalciferol (Vitamin D3)) 1,000 Unit Tablet 1,000 Unit PO DAILY Metoprolol Succinate ( Xl ) (Metoprolol Succinate) 25 Mg Tab.er.24h 25 Mg PO DAILY Plavix (Clopidogrel Bisulfate) 75 Mg Tablet 75 Mg PO DAILY Lasix (Furosemide) 40 Mg Tablet 40 Mg PO DAILY Potassium Chloride 20 Meq Tab.er.prt 20 Meq PO DAILY Aspirin 325 Mg Tablet 325 Mg PO DAILY Meclizine Hcl 25 Mg Tablet 25 Mg PO DAILY Vitals/I & O Vital Sign - Last 24 Hours 02/12/19 02/12/19 02/12/19 02/12/19 11:00 15:00 19:00 20:00 Temp 98.1 98.1 98.3 98.1 98.1 98.3 Pulse 82 76 83 Resp 17 15 19 B/P (MAP) 152/77 (102) 140/77 (98) 165/86 (112) Pulse Ox 97 93 95 O2 Delivery Room Air Room Air Room Air Room Air 02/12/19 02/13/19 02/13/19 02/13/19 23:00 03:00 07:00 08:36 Temp 98.3 98.4 98.1 98.3 98.4 98.1 Pulse 83 79 63 63 Resp 18 18 18 B/P (MAP) 165/86 (112) 160/85 (110) 157/74 (101) 157/74 Pulse Ox 95 92 98 O2 Delivery Room Air Room Air Room Air Intake and Output 02/12/19 02/12/19 02/13/19 15:00 23:00 07:00 Intake Total 300 ml Output Total 675 ml Balance 300 ml -675 ml PONCHO SWARTZ MD Feb 13, 2019 09:06
[2019-02-13 10:49] VITALS: BP 136/77
--- NOTE | 2019-02-13 11:48 | NUR ---
SW following. Discussed with RN, PT/ OT recommending SNU. SW met with pt, pt does not really want to go to SNU and does not think he needs it. Pt advised his does everything at home for him. Pt advised SW to call his Jeanne, (ph:[phone], cell: [phone]). SW left a voicemail on both phone numbers. SW will continue to follow. RN notified.
--- NOTE | 2019-02-13 12:11 | NUR ---
SW following. Discussed with RN. RUBA met with pt with Dr. Mendez, pt is agreeable to go to SNU now, and would like referral sent to [facility]. RUBA phoned and faxed referral.
[2019-02-13] MEDS ORDERED: METH500T7 PO (12:28)
[2019-02-13] MEDS ORDERED: PRED-220 PO (12:28)
--- NOTE | 2019-02-13 12:30 | SNU/HH DC ---
DISCHARGE ORDERS DISCHARGE INFORMATION: CONDITION ON DISCHARGE: Stable CODE STATUS: Code Status: Full CORRECTION: SNF STAY <30 DAYS: Yes POST DISCHARGE ORDERS: ACTIVITY ORDERS: Activity as tolerated WEIGHT BEARING STATUS: No restrictions DIET AFTER DISCHARGE: Cardiac CHECKS AFTER DISCHARGE: CHECKS AFTER DISCHARGE: Check blood sugar, ac/hs TREATMENT/EQUIPMENT ORDERS: ADAPTIVE EQUIPMENT NEEDED: Four wheeled walker, Wheelchair RESPIRATORY EQUIPMENT NEEDED: CPAP Physical Therapy For: Evalulation/Treatment Occupational Therapy For: Evaluation/Treatment DISCHARGE MEDICATIONS: Home Meds Active Scripts Prednisone (PREDNISONE ) 10 Mg Tablet, 10 MG PO UD for oa, #30 TAB 0 Refills Take 5 tablets by mouth daily for 2 days, then take 4 tablets by mouth daily for 2 days, then take 3 tablets by mouth daily for 2 days, then take 2 tablets by mouth daily for 2 days, then take 1 tablets by mouth daily for 2 days, then stop. Prov:JANET MIRANDA MD 02/13/19 Methocarbamol (METHOCARBAMOL) 500 Mg Tablet, 500 MG PO PRN TID PRN for MUSCLE PAIN for 30 Days, #60 TAB Prov:JANET MIRANDA MD 02/13/19 Reported Medications Atorvastatin Calcium (ATORVASTATIN CALCIUM) 10 Mg Tablet, 20 MG PO HS for HLD 09/24/17 Metformin Hcl (METFORMIN HCL) 1,000 Mg Tablet, 1000 MG PO DAILY 09/24/17 Meloxicam (MELOXICAM) 15 Mg Tablet, 15 MG PO DAILY 09/24/17 Allopurinol (ALLOPURINOL) 100 Mg Tablet, 100 MG PO DAILY 09/24/17 Lactobacillus Acidophilus (ACIDOPHILUS LACTOBACILLUS) 1 Each Capsule, 1 EACH PO 11/22/15 [place]-3S/Dha/Epa/Fish Oil/D3 (FISH OIL + D3 SOFTGEL) 1 Each Capsule, 1 EACH PO DAILY 04/10/14 Multivitamin (DAILY VITAMIN) 1 Each Tablet, 1 EACH PO DAILY 04/10/14 Cholecalciferol (Vitamin D3) (VITAMIN D) 1,000 Unit Tablet, 1000 UNIT PO DAILY 04/10/14 Metoprolol Succinate (METOPROLOL SUCCINATE ( XL )) 25 Mg Tab.er.24h, 25 MG PO DAILY 04/10/14 Clopidogrel Bisulfate (PLAVIX) 75 Mg Tablet, 75 MG PO DAILY 04/10/14 Furosemide (LASIX) 40 Mg Tablet, 40 MG PO DAILY 04/10/14 Potassium Chloride (POTASSIUM CHLORIDE) 20 Meq Tab.er.prt, 20 MEQ PO DAILY 04/10/14 Aspirin (ASPIRIN) 325 Mg Tablet, 325 MG PO DAILY 04/10/14 Meclizine Hcl (MECLIZINE HCL) 25 Mg Tablet, 25 MG PO DAILY 04/10/14 Discontinued Reported Medications Tamsulosin Hcl (TAMSULOSIN HCL) 0.4 Mg Cap.er.24h, 0.4 MG PO HS 09/24/17 Gabapentin (GABAPENTIN) 300 Mg Capsule, 300 MG PO DAILY 09/24/17 Discontinued Scripts Ciprofloxacin Hcl (CIPRO) 250 Mg Tablet, 1 TAB PO BID for 7 Days, #14 TAB Prov:CHUCK SIFUENTES MD 09/26/17 JANET MIRANDA MD Feb 13, 2019 12:30
--- NOTE | 2019-02-13 13:32 | NUR ---
SW following. Insurance has approved for pt to go to [facility]. Pt will be transported at 1545. RN notified.
[2019-02-13 15:00] VITALS: BP 171/72
--- NOTE | 2019-02-13 16:37 | NUR ---
pt discharged at 1603, pt transported by [facility] accompanied by to [facility] for skilled rehab. pt educated about medications and discharge instructions. pt stable and alert upon discharge. pt IV discontinued without complications. pt left with all belongings and discharge packet.
--- NOTE | 2019-02-13 17:00 | DS ---
DATE OF DISCHARGE: 02/13/2019 ADMITTING DIAGNOSIS: Intractable back pain. SECONDARY DIAGNOSES: 1. Spinal stenosis. 2. Leg weakness. HISTORY OF PRESENT ILLNESS AND HOSPITAL COURSE: This patient is a 78-year-old -[place] male who was unable to care for himself with increasing back pain and leg weakness, came to the office and unable to get out of wheelchair. Due to severity of symptoms, he was admitted for further evaluation. He did have MRI and Physical Medicine physical Rehabilitation Medicine consult, obtained sacroiliac joint injections. An MRI showed spinal stenosis of L-spine. The patient's condition improved, but he was still unable to care for himself. Therefore, plans for care home were made and the patient was transferred to care home for continued PT and OT modalities. DISCHARGE DIAGNOSES: 1. Spinal stenosis. 2. Leg weakness. 3. Sacroiliitis. 4. Type 2 diabetes. 5. Hypertension. 6. Coronary artery disease. 7. Chronic obstructive pulmonary disease. 8. Hyperlipidemia. 9. Obstructive sleep apnea. 10. Diabetic neuropathy. 11. Obesity. PLAN: To proceed with discharge on the following medications methocarbamol 500 mg t.i.d. p.r.n., prednisone taper at 10 mg 5 for 2 days, 4 for 2 days, 3 for 2 days, 2 for 2 days, 1 for 2 days, and off, allopurinol 100 mg daily, aspirin 325 mg daily, atorvastatin 10 mg daily, vitamin D 1000 international units daily, Plavix 75 mg daily, Lasix 40 mg daily, meclizine 25 mg p.o. daily p.r.n., meloxicam 50 mg daily, metformin 1000 mg daily, metoprolol XL 25 mg daily, multivitamin daily, omega 3 fatty acids daily, potassium 20 mEq daily. JANET MIRANDA MD DR: FREDDY/stephen JOB#: [id number] / [id number]
== END 2019-02-13 16:03 | DRG 552 ==
LOC: 5 SOUTH 15:56
PROVIDERS: ADMIT Family Medicine; ATTEND Family Medicine
PROC: 3E0U33Z Introduction of Anti-inflammatory into Joints, Percutaneous Approach (ICD-10-PCS; principal; 2019-02-12)
PROC: 3E0U3BZ Introduction of Anesthetic Agent into Joints, Percutaneous Approach (ICD-10-PCS; 2019-02-12)
DX: M48.061 Spinal stenosis, lumbar region without neurogenic claudication (principal); I10 Essential (primary) hypertension; M51.36 Other intervertebral disc degeneration, lumbar region; I25.10 Atherosclerotic heart disease of native coronary artery without angina pectoris; E78.5 Hyperlipidemia, unspecified; J44.9 Chronic obstructive pulmonary disease, unspecified; G47.33 Obstructive sleep apnea (adult) (pediatric); E04.2 Nontoxic multinodular goiter; M10.9 Gout, unspecified; E66.9 Obesity, unspecified; G89.29 Other chronic pain; E11.42 Type 2 diabetes mellitus with diabetic polyneuropathy; M46.1 Sacroiliitis, not elsewhere classified; Z68.33 Body mass index [BMI] 33.0-33.9, adult; Z80.42 Family history of malignant neoplasm of prostate; Z87.891 Personal history of nicotine dependence; Z82.49 Family history of ischemic heart disease and other diseases of the circulatory system
CPT/HCPCS: 36415; 72158; 80048; 80053; 82962; 85025; A9585; J1030; J1650; J1815; J3490; J7512; 97116; 97535

== ENCOUNTER 2020-05-30 18:10 | Emergency (ER) | payer MEDICARE ==
[~2020-05-30] VITALS: Ht 180.3 cm; Wt 104.5 kg
[~2020-05-30 18:10] MED LIST changes: -GLIM1TAB2 PO; +GLIM1TAB7 PO; -GLIM2TAB2 PO; +GLIM2TAB7 PO; +MECL-75 PO; -MECL25TA3 PO; +METH500T7 PO; +PRED-220 PO
[2020-05-30 19:03] LABS: BASO % 1 % (0-3); EOS # 0.1 x10^3/uL (0.0-0.7); EOS % 2 % (0-3); HEMATOCRIT 39.7 % (39.0-53.0); HEMOGLOBIN 13.7 g/dL (13.0-17.5); LYMPH # 2.4 x10^3/uL (1.0-4.8); LYMPH % 40 % (24-48); MEAN CORPUSCULAR HEMOGLOBIN 29 pg (25-35); MEAN CORPUSCULAR HGB CONC 34 g/dL (31-37); MEAN CORPUSCULAR VOLUME 85 fL (79-100); MONO # 0.4 x10^3/uL (0.0-1.1); MONO % 7 % (0-9); NEUT % 50 % (31-73); PLATELET COUNT 264 x10^3/uL (140-400); RED BLOOD COUNT 4.65 x10^6/uL (4.30-5.70); RED CELL DISTRIBUTION WIDTH 13.9 % (11.5-14.5); WHITE BLOOD COUNT 5.9 x10^3/uL (4.0-11.0)
[2020-05-30 19:11] LABS: PROTHROMBIN TIME PATIENT 12.4 SEC (11.7-14.0)
[2020-05-30 19:16] LABS: CALCIUM 8.9 mg/dL (8.5-10.1); CREATININE 1.7 mg/dL (0.7-1.3); GFR 47.3; POTASSIUM 3.9 mmol/L (3.5-5.1)
[2020-05-30 19:23] LABS: ALBUMIN 3.4 g/dL (3.4-5.0); TOTAL BILIRUBIN 0.4 mg/dL (0.2-1.0); TOTAL PROTEIN 6.8 g/dL (6.4-8.2)
--- NOTE | 2020-05-30 19:57 | RAD ---
CHEST AP ONLY Clinical Indication: Reason: SOB / Spl. Instructions: / History: Comparison: Two-view chest, September 24, 2017.. Findings: The cardiomediastinal silhouette is normal. Coronary artery disease. Moderate elevation right hemidiaphragm. Stable tiny calcified granuloma left upper lung. Lungs are clear. There is no pneumothorax. No pleural effusion is appreciated. No acute bone abnormality. Old left lateral rib fractures. IMPRESSION: No acute cardiopulmonary process. Electronically signed by: Yordy Gayle MD (05/30/2020 7:54 PM) [facility]
[2020-05-30] MEDS ORDERED: IV NORMAL SALINE 1000ML BAG 1,000 ML IV ONE (20:30)
--- NOTE | 2020-05-30 21:03 | PHYS DOC ---
Past Medical History Past Medical History: Arthritis, CAD, Diabetes-Type II, High Cholesterol, Hypertension Additional Past Medical Histor: BACK PAIN, BROKEN RIGHT ARM, BROKEN RIGHT LEG X2, cardiac stents Past Surgical History: Other Additional Past Surgical Histo: LAP BAND, cardiac stents Smoking Status: Former Smoker Alcohol Use: None Drug Use: None General Adult EDM: Chief Complaint: WEAKNESS/GENERALIZED HPI: HPI: Patient is a 79 year old male presenting to the ED with chief complaint of generalized weakness. Patient states that he had an episode that lasted few minutes but he also was short of breath. Patient states that currently he is as ymptomatic. Patient states that he has had a bowel movement when this occurred. Patient denies fever, chills, nausea, vomiting, chest pain, shortness of breath. Review of Systems: Review of Systems: Constitutional: Denies fever or chills. [] Eyes: Denies change in visual acuity. [] HENT: Denies nasal congestion or sore throat. [] Respiratory: Denies cough or shortness of breath. [] Cardiovascular: Denies chest pain or edema. [] GI: Denies abdominal pain, nausea, vomiting, bloody stools or diarrhea. [] : Denies dysuria. [] Neurologic: Denies headache, focal weakness or sensory changes. [] Heart Score: HEART Score for Chest Pain: HEART Score for Chest Pain Response (Comments) Value History Slighlty/Non-Suspicious 0 ECG Normal 0 Age > 65 2 Risk Factors 1 or 2 Risk Factors 1 Troponin < Normal Limit 0 Total 3 Risk Factors: Risk Factors: DM, Current or recent (<one month) smoker, HTN, HLP, family history of CAD, obesity. Risk Scores: Score 0 - 3: 2.5% MACE over next 6 weeks - Discharge Home Score 4 - 6: 20.3% MACE over next 6 weeks - Admit for Clinical Observation Score 7 - 10: 72.7% MACE over next 6 weeks - Early Invasive Strategies Current Medications: Current Medications Medications (Trade) Dose Ordered Sig/Mark Start Time Stop Time Status Last Admin Dose Admin Sodium Chloride 1,000 ml @ 1,000 mls/hr 1X ONCE 05/30/20 20:30 05/30/20 21:29 05/30/20 20:30 1,000 MLS/HR Allergies: Allergies: Allergies Coded Allergies Type Severity Reaction Last Updated Verified No Known Drug Allergies 08/08/15 No Physical Exam: PE: Constitutional: Well developed, well nourished, no acute distress, non-toxic appearance. [] HENT: Normocephalic, atraumatic Eyes: EOMI Neck: Normal range of motion, Supple Cardiovascular:Heart rate regular rhythm Lungs & Thorax: Bilateral breath sounds clear to auscultation [] Abdomen: Bowel sounds normal, soft, no tenderness Extremities: No tenderness, ROM intact Neurologic: Alert and oriented X 3 Current Patient Data: Labs: Laboratory Tests Test 05/30/20 18:28 White Blood Count 5.9 x10^3/uL (4.0-11.0) Red Blood Count 4.65 x10^6/uL (4.30-5.70) Hemoglobin 13.7 g/dL (13.0-17.5) Hematocrit 39.7 % (39.0-53.0) Mean Corpuscular Volume 85 fL (79-100) Mean Corpuscular Hemoglobin 29 pg (25-35) Mean Corpuscular Hemoglobin Concent 34 g/dL (31-37) Red Cell Distribution Width 13.9 % (11.5-14.5) Platelet Count 264 x10^3/uL (140-400) Neutrophils (%) (Auto) 50 % (31-73) Lymphocytes (%) (Auto) 40 % (24-48) Monocytes (%) (Auto) 7 % (0-9) Eosinophils (%) (Auto) 2 % (0-3) Basophils (%) (Auto) 1 % (0-3) Neutrophils # (Auto) 3.0 x10^3/uL (1.8-7.7) Lymphocytes # (Auto) 2.4 x10^3/uL (1.0-4.8) Monocytes # (Auto) 0.4 x10^3/uL (0.0-1.1) Eosinophils # (Auto) 0.1 x10^3/uL (0.0-0.7) Basophils # (Auto) 0.0 x10^3/uL (0.0-0.2) Prothrombin Time 12.4 SEC (11.7-14.0) Prothrombin Time INR 1.0 (0.8-1.1) Sodium Level 141 mmol/L (136-145) Potassium Level 3.9 mmol/L (3.5-5.1) Chloride Level 101 mmol/L (98-107) Carbon Dioxide Level 30 mmol/L (21-32) Anion Gap 10 (6-14) Blood Urea Nitrogen 16 mg/dL (8-26) Creatinine 1.7 mg/dL (0.7-1.3) H Estimated GFR (Cockcroft-Gault) 47.3 BUN/Creatinine Ratio 9 (6-20) Glucose Level 152 mg/dL (70-99) H Calcium Level 8.9 mg/dL (8.5-10.1) Total Bilirubin 0.4 mg/dL (0.2-1.0) Aspartate Amino Transferase (AST) 14 U/L (15-37) L Alanine Aminotransferase (ALT) 17 U/L (16-63) Alkaline Phosphatase 62 U/L (46-116) Troponin I Quantitative < 0.017 ng/mL (0.000-0.055) Total Protein 6.8 g/dL (6.4-8.2) Albumin 3.4 g/dL (3.4-5.0) Albumin/Globulin Ratio 1.0 (1.0-1.7) Lipase 100 U/L (73-393) Laboratory Tests 05/30/20 18:28 Laboratory Tests 05/30/20 18:28 Vital Signs: Vital Signs Date Time Temp Pulse Resp B/P (MAP) Pulse Ox O2 Delivery O2 Flow Rate FiO2 05/30/20 18:15 97.7 75 18 137/63 (87) 97 Room Air 97.7 EKG: EKG: [EKG interpretation: 18: 25 on 05/30/2020 HR: 64 Sinus rhythm Regular intervals Normal axis Nonspecific ST changes No STEMI ] Radiology/Procedures: Radiology/Procedures: [] Impression: CXR IMPRESSION: No acute cardiopulmonary process. Course & Med Decision Making: Course & Med Decision Making Pertinent Labs and Imaging studies reviewed. (See chart for details) EKG does not show any acute changes. Chest x-ray does not show any acute disease. Labs are within normal limits. Troponin is negative Patient was given 1 L IV fluids in the ER. Repeat troponin is negative as well. Patient can be discharged for outpatient follow-up. Discussed results and plan of care with patient. Patient is instructed to follow up with PCP in one to 2 days. Appropriate discharge instructions given to patient to return to the ED or to seek immediate medical evaluation. Patient is instructed to return to the ED if symptoms worsen or if any concerns. Dragon Disclaimer: Dragon Disclaimer: This electronic medical record was generated, in whole or in part, using a voice recognition dictation system. Departure Departure Impression: Primary Impression: Generalized weakness Additional Impression: Dehydration Disposition: 01 HOME, SELF-CARE Condition: STABLE Referrals: JANET MIRANDA MD (PCP) Patient Instructions: Dehydration, Adult, Weakness Additional Instructions: Discussed results and plan of care with patient. Patient is instructed to follow up with PCP in one to 2 days. Appropriate discharge instructions given to patient to return to the ED or to seek immediate medical evaluation. Patient is instructed to return to the ED if symptoms worsen or if any concerns. Justicifation of Admission Dx: Justifications for Admission: Justification of Admission Dx: KEVIN Montgomery DO May 30, 2020 21:03
[2020-05-31 00:38] VITALS: BP 141/72
--- NOTE | 2020-06-01 14:44 | EKG ---
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
== END 2020-05-31 00:39 | disposition home or self-care (01) ==
LOC: ER 18:10
DX: R53.1 Weakness (principal); E86.0 Dehydration; E11.9 Type 2 diabetes mellitus without complications; E78.00 Pure hypercholesterolemia, unspecified; I10 Essential (primary) hypertension; I25.10 Atherosclerotic heart disease of native coronary artery without angina pectoris; Z87.891 Personal history of nicotine dependence; Z95.5 Presence of coronary angioplasty implant and graft
CPT/HCPCS: 36415; 71045; 80053; 83690; 84484; 85025; 85610; 96360; 96361; 99285; J7030; 93005

== ENCOUNTER 2020-07-29 14:34 | Emergency (ER) | payer MEDICARE ==
[~2020-07-29] VITALS: Ht 182.9 cm; Wt 98.1 kg
--- NOTE | 2020-07-29 15:30 | RAD ---
Exam: Pelvis with right hip 2 views. Right femur 2 views INDICATION: Fall TECHNIQUE: Frontal view of pelvis with frontal and frog-leg lateral views of the right hip. Frontal and lateral views of the right femur Comparisons: None FINDINGS: Pelvis: Bone mineralization is normal. No acute or healed fractures. Soft tissues are unremarkable. Joint spaces are well-maintained. Femur: Bone mineralization is normal. No acute or healed fractures. Soft tissues are unremarkable. Joint spaces are well-maintained. IMPRESSION: 1. No acute osseous abnormality of the pelvis. If the patient is acutely unable to weight MRI to exclude occult hip fracture is recommended. 2. No acute osseous abnormality of the femur. Electronically signed by: Jasmyne Becker MD (07/29/2020 3:28 PM) [id number]
--- NOTE | 2020-07-29 15:37 | PHYS DOC ---
Past Medical History Past Medical History: Arthritis, CAD, Diabetes-Type II, High Cholesterol, Hypertension Additional Past Medical Histor: BACK PAIN, BROKEN RIGHT ARM, BROKEN RIGHT LEG X2, cardiac stents Past Surgical History: Other Additional Past Surgical Histo: LAP BAND, cardiac stents Smoking Status: Former Smoker Alcohol Use: None Drug Use: None General Adult EDM: Chief Complaint: MECHANICAL FALL HPI: HPI: Patient is a 79 year old AA male who presents the emergency department via EMS with complaints of pain in his right lateral thigh after slipping and falling while getting out of bed yesterday. Patient denies any syncope or hitting his head. He states that he was on the floor for approximately 40 minutes before son came in lifted him back up. He only reports pain with weightbearing and movement. He denies any pain at rest. He denies any recent fever, cough, sore throat, body aches, syncope, chest pain, nausea, vomiting, diarrhea, or abdominal pain. He currently denies any pain. He states it only hurts if you touch it. Review of Systems: Review of Systems: Complete ROS is negative unless otherwise stated in the HPI. Heart Score: Risk Factors: Risk Factors: DM, Current or recent (<one month) smoker, HTN, HLP, family history of CAD, obesity. Risk Scores: Score 0 - 3: 2.5% MACE over next 6 weeks - Discharge Home Score 4 - 6: 20.3% MACE over next 6 weeks - Admit for Clinical Observation Score 7 - 10: 72.7% MACE over next 6 weeks - Early Invasive Strategies Allergies: Allergies: Allergies Coded Allergies Type Severity Reaction Last Updated Verified No Known Drug Allergies 08/08/15 No Physical Exam: PE: Constitutional: Well developed, well nourished, no acute distress, non-toxic appearance. [] HENT: Normocephalic, atraumatic, bilateral external ears normal, nose normal. [] Eyes: PERRLA, EOMI, conjunctiva normal, no discharge. [] Neck: Normal range of motion, no stridor. [] Cardiovascular:Heart rate regular rhythm Lungs & Thorax: Respirations even and unlabored, no retractions, no respiratory distress Back: Nontender to palpation Skin: Warm, dry, no erythema, no rash. [] Extremities: RLE: Lateral proximal femur tenderness to palpation without crepitus or obvious deformity, no hematoma, external rotation without shortening noted to the right lower extremity, no cyanosis, ROM intact, no edema. [] Neurologic: Alert and oriented X 3, no focal deficits noted. [] Psychologic: Affect normal, judgement normal, mood normal. [] Current Patient Data: Vital Signs: Vital Signs Date Time Temp Pulse Resp B/P (MAP) Pulse Ox O2 Delivery O2 Flow Rate FiO2 07/29/20 14:34 98.5 64 22 130/69 (89) 99 Room Air 98.5 EKG: EKG: [] Radiology/Procedures: Radiology/Procedures: PROCEDURE: RIGHT FEMUR XRAY Exam: Pelvis with right hip 2 views. Right femur 2 views INDICATION: Fall TECHNIQUE: Frontal view of pelvis with frontal and frog-leg lateral views of the right hip. Frontal and lateral views of the right femur Comparisons: None FINDINGS: Pelvis: Bone mineralization is normal. No acute or healed fractures. Soft tissues are unremarkable. Joint spaces are well-maintained. Femur: Bone mineralization is normal. No acute or healed fractures. Soft tissues are unremarkable. Joint spaces are well-maintained. IMPRESSION: 1. No acute osseous abnormality of the pelvis. If the patient is acutely unable to weight MRI to exclude occult hip fracture is recommended. 2. No acute osseous abnormality of the femur. Electronically signed by: Jasmyne Becker MD (07/29/2020 3:28 PM) [id number][] Course & Med Decision Making: Course & Med Decision Making Pertinent Labs and Imaging studies reviewed. (See chart for details) 79-year-old male presents emergency department with complaints of right femur pain. X-rays of the right hip and right femur were negative for any acute findings. After discussing this result with the patient he was able to ambulate using a walker with nursing staff. Patient reports that he always uses a walker at home to ambulate. Patient reported that he feels better and that the pain was less severe after having the negative x-ray result. He was encouraged to follow-up with his primary care doctor if symptoms persist may take Tylenol or ibuprofen as needed for pain. Recommend activity as tolerated, rest, elevation, and application of ice. [] Dragon Disclaimer: Dragon Disclaimer: This electronic medical record was generated, in whole or in part, using a voice recognition dictation system. Departure Departure Impression: Primary Impression: Acute pain of right thigh Disposition: HOME, SELF-CARE Condition: STABLE Referrals: JANET MIRANDA MD (PCP) KULWINDER POSEY MD Patient Instructions: Contusion, [id number] Additional Instructions: Take Tylenol or ibuprofen as needed for pain. Recommend application heat or ice, elevation, and rest of affected extremity. Follow-up with your primary care doctor or Dr. Posey if symptoms persist, return to the ER if your symptoms worsen. Justicifation of Admission Dx: Justifications for Admission: Justification of Admission Dx: STEFANI Alejandre APRN Jul 29, 2020 15:37
[2020-07-29 16:07] VITALS: BP 160/75
--- NOTE | 2020-07-29 17:35 | EKG ---
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
== END 2020-07-29 16:57 | disposition home or self-care (01) ==
LOC: ER 14:34
DX: M79.651 Pain in right thigh (principal); M19.90 Unspecified osteoarthritis, unspecified site; E11.9 Type 2 diabetes mellitus without complications; E78.00 Pure hypercholesterolemia, unspecified; I10 Essential (primary) hypertension; Z98.890 Other specified postprocedural states; Z87.891 Personal history of nicotine dependence
CPT/HCPCS: 73502; 73552; 93005; 99284